=== PATIENT | female | born 1980 | race Caucasian/White ===

== ENCOUNTER 2019-10-11 11:30 | Emergency (ER) | payer SELFPAY ==
[~2019-10-11] VITALS: Ht 170.2 cm; Wt 87.9 kg
[2019-10-11 12:18] VITALS: BP 173/102
[2019-10-11 13:13] LABS: BASOPHILS # (AUTO) 0.02 x10^3/uL (0-0.1); BASOPHILS % (AUTO) 0 % (0-1); EOSINOPHILS # (AUTO) 0.08 x10^3/uL (0-0.4); EOSINOPHILS % (AUTO) 1 % (1-7); LYMPHOCYTES # (AUTO) 3.17 x10^3/uL (1-3.4); LYMPHOCYTES % (AUTO) 30 % (22-44); MD NO; MEAN CORPUSCULAR HEMOGLOBIN 29.9 pg (27.0-34.8); MEAN CORPUSCULAR HGB CONC 33.2 g/dL (32.4-35.8); MEAN CORPUSCULAR VOLUME 90.2 fL (80-100); MEAN PLATELET VOLUME 8.6 fL (7.4-10.4); MONOCYTES # (AUTO) 0.19 x10^3/uL (0.2-0.8); MONOCYTES % (AUTO) 2 % (2-9); NEUTROPHILS # (AUTO) 7.14 x10^3/uL (1.8-6.8); NEUTROPHILS % (AUTO) 67 % (42-75); PLATELET COUNT 306 x10^3/uL (130-400); RED BLOOD COUNT 5.16 x10^6/uL (3.82-5.3); RED CELL DISTRIBUTION WIDTH 13.9 % (9.6-15.2)
== END 2019-10-11 13:49 | disposition left against medical advice (07) ==
LOC: ED 12:30
DX: M25.522 Pain in left elbow (principal); F17.200 Nicotine dependence, unspecified, uncomplicated
CPT/HCPCS: 36415; 85025; 99283

== ENCOUNTER 2019-11-13 09:31 | Inpatient (IN) | payer MEDICARE, MEDICAID ==
[~2019-11-13] VITALS: Ht 170.2 cm; Wt 92.0 kg
--- NOTE | 2019-11-13 09:35 | NUR ---
PT TO ROOM 24 PER SHARLA. PT C/O SEVERE BODY ACHES SINCE YESTERDAY, AND TODAY IT HURT TO SMOKE A CIGARETTE, SO SHE CALLED 911. PT A/O X3, CURRENTLY HOME ON DISABILITY DUE TO MENTAL ILLNESS. PT STATES THAT THE PAIN IS PRIMARILY IN HER JOINTS AROUND BILATERAL KNEES, LOWER BACK AND ELBOWS. PT CHECKED IN, IV PLACED, CXR COMPLETED, PLACED IN GOWN, ON MONITOR, WARM BLANKETS, ICE CHIPS AND CALL LIGHT.
--- NOTE | 2019-11-13 10:30 | NUR ---
RN REQUESTING THAT PATIENT OBTAIN A URINE SAMPLE, AND PATIENT INFORMS RN THAT SHE CAN'T GO YET.
[2019-11-13 11:19] LABS: MEAN CORPUSCULAR HEMOGLOBIN 28.9 pg (27.0-34.8); MEAN CORPUSCULAR HGB CONC 32.4 g/dL (32.4-35.8); MEAN CORPUSCULAR VOLUME 89.3 fL (80-100); MEAN PLATELET VOLUME 10.3 fL (7.4-10.4); PLATELET COUNT 238 x10^3/uL (130-400); RED BLOOD COUNT 4.62 x10^6/uL (3.82-5.3); RED CELL DISTRIBUTION WIDTH 14.2 % (9.6-15.2)
[2019-11-13 11:26] LABS: RAPID INFLUENZA A Negative (Negative); RAPID INFLUENZA B Negative (Negative)
[2019-11-13 11:26] LABS: ALANINE AMINOTRANSFERASE 23 U/L (12-78); ALBUMIN 2.5 g/dL (3.4-5.0); ANION GAP 7 mmol/L (5-15); CALCIUM 8.6 mg/dL (8.5-10.1); CHLORIDE 110 mmol/L (98-107)
[2019-11-13 11:29] LABS: ALKALINE PHOSPHATASE 77 U/L (45-117); BILIRUBIN,TOTAL 0.6 mg/dL (0.2-1.0); TOTAL PROTEIN 6.5 g/dL (6.4-8.2)
--- NOTE | 2019-11-13 11:49 | NUR ---
PT REQUESTING PAIN MEDICATIONS FOR LEG PAIN. DR. CASTRO INFORMED AND ORDER RECEIVED.
[2019-11-13] MEDS ORDERED: KETOROLAC 30 MG/1 ML ONE (11:51)
[2019-11-13] MEDS ORDERED: KETOROLAC 60 MG/2 ML IM ONE (12:00)
[2019-11-13 12:04] LABS: MD YES
[2019-11-13 12:07] LABS: EOS#(MANUAL) 0.18 x10^3/uL (0.0-0.4); EOS% (MANUAL) 1 % (1-7); LYMPH#(MANUAL) 1.65 x10^3/uL (1-3.4); LYMPHS% (MANUAL) 9 % (22-44)
[2019-11-13 12:08] LABS: BAND#(MANUAL) 1.83 x10^3/uL; BANDS%(MANUAL) 10 % (0-7); MONOS#(MANUAL) 0.37 x10^3/uL (0.3-2.7); MONOS% (MANUAL) 2 % (2-9); SEGS% (MANUAL) 78 % (42-75)
[2019-11-13 12:09] LABS: <PLATELET ESTIMATE> ADEQUATE; <PLT MORPHOLOGY> NORMAL PLT MORPH; <RBC MORPHOLOGY> NORMAL
[2019-11-13] MEDS ORDERED: PLEASE ENTER ALLERGIES MC SCH (12:30)
[2019-11-13] MEDS ORDERED: AZITHROMYCIN 500 MG in SODIUM CHLORIDE 0.9% 250 ML IV ONE (12:30)
[2019-11-13 13:16] LABS: CREATINE KINASE, TOTAL 45 U/L (26-192)
[2019-11-13 13:22] LABS: MICROSCOPIC AUTO
[2019-11-13 13:25] LABS: CULTURE INDICATED? YES
[2019-11-13] MEDS: D5%-0.45% NACL 1,000 ML IV SCH (13:44)
[2019-11-13] MEDS ORDERED: TEMAZEPAM 15 MG CAPSULE PO PRN (14:00)
[2019-11-13] MEDS ORDERED: morphine SULFATE 10 MG/ML, 1ML IVPush PRN (14:00)
[2019-11-13] MEDS ORDERED: ACETAMINOPHEN 325 MG TABLET PO PRN (14:00)
[2019-11-13] MEDS: ENOXAPARIN 40 MG/0.4 ML SQ SCH (14:00)
[2019-11-13] MEDS ORDERED: ONDANSETRON 2MG/ML, 2ML IVPush PRN (14:00)
[2019-11-13 14:23] LABS: FREE T4 (FREE THYROXINE) 1.27 ng/dL (0.76-1.46)
--- NOTE | 2019-11-13 14:47 | NUR ---
BREAK RN NOTE: VS REASSESSED. PIV TO RIGHT FOREARM TAKEN OUT PER PRIMARY RN REQUEST IT WAS TENDER AND PAINFUL. TIP INTACT. SPO2 90% ON ROOM AIR, OXYGEN REAPPLIED AT 2L/MIN. PT SATTING >95% ON 2L. PT DROWSY, A&O, RESPS EVEN AND UNLABORED. PT ABLE TO SPEAK IN FULL SENTENCES WIHTOUT DIFFICULTY. REPORT GIVEN BACK TO PRIMARY RN WHO HAS NOW RETURNED FROM BREAK.
--- NOTE | 2019-11-13 14:50 | NUR ---
REPORT GIVEN BACK TO PRIMARY RN MONIQUE WHO HAS NOW RETURNED FROM HER BREAK.
[2019-11-13] MEDS ORDERED: MAGNESIUM SULFATE PMX 2GM/50ML 50 ML IV ONE (15:00)
[2019-11-13] MEDS ORDERED: ZIPR40CA3 PO (15:21)
[2019-11-13] MEDS ORDERED: TRAZ-96 PO (15:21)
[2019-11-13] MEDS ORDERED: SUMA20SP2 PO (15:21)
[2019-11-13] MEDS ORDERED: ATOR-2 PO (15:21)
[2019-11-13] MEDS ORDERED: HYDR25PO5 PO (15:21)
[2019-11-13] MEDS ORDERED: GABA300S PO (15:21)
[2019-11-13] MEDS ORDERED: PROP40SO PO (15:21)
[2019-11-13] MEDS: HYDROXYCHLOROQUINE 200 MG TABLET PO SCH ×2 (15:29→20:06)
[2019-11-13] MEDS ORDERED: morphine SULFATE 10 MG/ML, 1ML ONE (15:31)
--- NOTE | 2019-11-13 15:45 | NUR ---
PT C/O SEVERE PAIN, 5MG IV MORPHINE GIVEN WITHOUT DIFF. FIRST DOSE OF PLAQUINIL ADMINISTERED. MED REC DONE. REPORT TO LIZ POLLOCK. PT TO ROOM PER CART. STATES "MORPHINE HELPING ALREADY"
[2019-11-13] MEDS: OXYcodone IR 5MG TABLET PO PRN (20:06)
[2019-11-13 20:07] VITALS: BP 96/52
[2019-11-13] MEDS: NICOTINE 14MG/24 HR PATCH.TD24 TD SCH (22:42)
[2019-11-14 02:17] VITALS: BP 86/69
[2019-11-14] MEDS ORDERED: SODIUM CHLORIDE 0.9% 1,000ML IVBOLUS ONE (02:30)
[2019-11-14 05:56] LABS: ALBUMIN 1.9 g/dL (3.4-5.0); ANION GAP 7 mmol/L (5-15); CALCIUM 8.4 mg/dL (8.5-10.1); CHLORIDE 112 mmol/L (98-107)
[2019-11-14 06:00] LABS: ALANINE AMINOTRANSFERASE 17 U/L (12-78); ALKALINE PHOSPHATASE 69 U/L (45-117); BILIRUBIN,TOTAL 0.5 mg/dL (0.2-1.0); TOTAL PROTEIN 5.5 g/dL (6.4-8.2)
[2019-11-14 06:16] LABS: BASOPHILS # (AUTO) 0.04 x10^3/uL (0-0.1); BASOPHILS % (AUTO) 1 % (0-1); EOSINOPHILS % (AUTO) 5 % (1-7); LYMPHOCYTES # (AUTO) 2.12 x10^3/uL (1-3.4); LYMPHOCYTES % (AUTO) 24 % (22-44); MD NO; MEAN CORPUSCULAR HEMOGLOBIN 28.8 pg (27.0-34.8); MEAN CORPUSCULAR HGB CONC 32.8 g/dL (32.4-35.8); MEAN PLATELET VOLUME 10.6 fL (7.4-10.4); MONOCYTES # (AUTO) 0.38 x10^3/uL (0.2-0.8); MONOCYTES % (AUTO) 4 % (2-9); NEUTROPHILS # (AUTO) 5.74 x10^3/uL (1.8-6.8); NEUTROPHILS % (AUTO) 66 % (42-75); PLATELET COUNT 195 x10^3/uL (130-400); RED BLOOD COUNT 4.04 x10^6/uL (3.82-5.3)
[2019-11-14 06:17] VITALS: BP 96/67
[2019-11-14] MEDS: D5%-0.45% NACL 1,000 ML IV SCH (08:00)
[2019-11-14] MEDS: POTASSIUM CHLORIDE 20 MEQ TAB.ER.PRT PO SCH ×2 (08:00→16:54)
[2019-11-14] MEDS ORDERED: ZINC SULFATE 220 MG CAPSULE ONE (08:36)
[2019-11-14] MEDS ORDERED: CHOLECALCIFEROL 5,000u TAB ONE (08:36)
[2019-11-14] MEDS ORDERED: ASCORBIC ACID 500 MG TABLET ONE (08:37)
[2019-11-14] MEDS: CEFTRIAXONE PMX 1GM/50ML 50 ML IV SCH (08:38)
[2019-11-14] MEDS: HYDROXYCHLOROQUINE 200 MG TABLET PO SCH ×2 (08:39→22:24)
[2019-11-14] MEDS: SENNA/DOCUSATE TABLET PO SCH (08:40)
[2019-11-14] MEDS: CHOLECALCIFEROL 5,000u TAB PO SCH (08:40)
[2019-11-14] MEDS: AZITHROMYCIN 500 MG TABLET PO SCH (08:40)
[2019-11-14] MEDS: ZINC SULFATE 220 MG CAPSULE PO SCH (08:40)
[2019-11-14 08:59] VITALS: BP 116/79
[2019-11-14] MEDS ORDERED: ASCORBIC ACID 250 MG TAB PO SCH (09:00)
[2019-11-14 12:29] VITALS: BP 114/71
[2019-11-14] MEDS: ENOXAPARIN 40 MG/0.4 ML SQ SCH (13:28)
[2019-11-14] MEDS: OXYcodone IR 5MG TABLET PO PRN ×3 (13:29→22:24)
[2019-11-14] MEDS ORDERED: ENOXAPARIN 40 MG/0.4 ML SQ SCH (15:30)
[2019-11-14] MEDS: ASCORBIC ACID 500 MG TABLET PO SCH (16:54)
[2019-11-14] MEDS ORDERED: ATORVASTATIN 40 MG TABLET PO SCH (21:00)
[2019-11-14] MEDS: NICOTINE 14MG/24 HR PATCH.TD24 TD SCH (22:30)
[2019-11-15] MEDS ORDERED: SUMATRIPTAN 50 MG TABLET PO PRN (03:00)
[2019-11-15 03:59] VITALS: BP 116/77
[2019-11-15 05:12] LABS: BASOPHILS # (AUTO) 0.03 x10^3/uL (0-0.1); BASOPHILS % (AUTO) 0 % (0-1); EOSINOPHILS # (AUTO) 0.38 x10^3/uL (0-0.4); EOSINOPHILS % (AUTO) 5 % (1-7); LYMPHOCYTES # (AUTO) 2.45 x10^3/uL (1-3.4); LYMPHOCYTES % (AUTO) 33 % (22-44); MD NO; MEAN CORPUSCULAR HEMOGLOBIN 28.6 pg (27.0-34.8); MEAN CORPUSCULAR HGB CONC 32.6 g/dL (32.4-35.8); MEAN CORPUSCULAR VOLUME 87.9 fL (80-100); MEAN PLATELET VOLUME 9.9 fL (7.4-10.4); MONOCYTES # (AUTO) 0.51 x10^3/uL (0.2-0.8); MONOCYTES % (AUTO) 7 % (2-9); NEUTROPHILS # (AUTO) 4.15 x10^3/uL (1.8-6.8); NEUTROPHILS % (AUTO) 55 % (42-75); PLATELET COUNT 250 x10^3/uL (130-400); RED BLOOD COUNT 4.16 x10^6/uL (3.82-5.3)
[2019-11-15 05:17] LABS: ANION GAP 5 mmol/L (5-15); CHLORIDE 117 mmol/L (98-107)
[2019-11-15 05:24] LABS: ALANINE AMINOTRANSFERASE 18 U/L (12-78); ALKALINE PHOSPHATASE 67 U/L (45-117); BILIRUBIN,TOTAL 0.3 mg/dL (0.2-1.0); CREATININE 0.65 mg/dL (0.55-1.02); TOTAL PROTEIN 5.7 g/dL (6.4-8.2)
[2019-11-15 08:00] VITALS: BP 111/75
[2019-11-15] MEDS: ASCORBIC ACID 500 MG TABLET PO SCH (08:00)
[2019-11-15] MEDS: POTASSIUM CHLORIDE 20 MEQ TAB.ER.PRT PO SCH (08:00)
[2019-11-15] MEDS: CEFTRIAXONE PMX 1GM/50ML 50 ML IV SCH (08:20)
[2019-11-15] MEDS: ZINC SULFATE 220 MG CAPSULE PO SCH (08:22)
[2019-11-15] MEDS: AZITHROMYCIN 500 MG TABLET PO SCH (08:22)
[2019-11-15] MEDS: HYDROXYCHLOROQUINE 200 MG TABLET PO SCH (08:22)
[2019-11-15] MEDS: SENNA/DOCUSATE TABLET PO SCH (08:22)
[2019-11-15] MEDS: CHOLECALCIFEROL 5,000u TAB PO SCH (08:22)
[2019-11-15] MEDS ORDERED: ZIPRASIDONE 40MG CAPSULE PO SCH (09:00)
[2019-11-15] MEDS ORDERED: PROPRANOLOL 60 MG TABLET PO SCH (09:00)
[2019-11-15] MEDS ORDERED: GABAPENTIN 300 MG CAPSULE PO SCH (09:00)
[2019-11-15] MEDS ORDERED: hydrOXyzine 50MG TABLET PO PRN (09:00)
[2019-11-15 11:30] VITALS: BP 111/75
[2019-11-15] MEDS ORDERED: AMOX500T PO (11:40)
[2019-11-15] MEDS ORDERED: AZIT250T PO (11:40)
[2019-11-15 13:14] VITALS: BP 115/71
[2019-11-15] MEDS ORDERED: TRAZODONE 100MG TABLET PO PRN (21:00)
== END 2019-11-15 14:40 | disposition home or self-care (01) | DRG 178 ==
LOC: ED 09:39 → EDIP 13:05 → 3E 15:59
PROVIDERS: ADMIT Emergency Medicine; ATTEND Family Medicine
DX: J15.6 Pneumonia due to other Gram-negative bacteria (principal); E44.1 Mild protein-calorie malnutrition; D72.823 Leukemoid reaction; B97.29 Other coronavirus as the cause of diseases classified elsewhere; F17.200 Nicotine dependence, unspecified, uncomplicated; F20.9 Schizophrenia, unspecified; I10 Essential (primary) hypertension; M79.7 Fibromyalgia; F32.9 Major depressive disorder, single episode, unspecified; F41.9 Anxiety disorder, unspecified; D72.825 Bandemia; Z72.89 Other problems related to lifestyle; Z20.828 Contact with and (suspected) exposure to other viral communicable diseases
CPT/HCPCS: 36415; 71045; 80053; 81001; 82550; 82728; 83605; 83615; 83735; 84100; 84145; 84439; 84443; 85025; 85379; 86140; 87040; 87086; 87400; 93005; 96365; 96372; 96375; G0378; J0456; J0696; J1650; J1885; J2270; J3475; J7030; J7050; U0001

== ENCOUNTER 2020-04-08 08:05 | Emergency (ER) | payer MEDICARE, MEDICAID ==
[~2020-04-08] VITALS: Ht 170.2 cm; Wt 72.6 kg
[~2020-04-08 08:05] MED LIST: AMOX500T PO; ATOR-2 PO; AZIT250T PO; GABA300S PO; HYDR25PO5 PO; PROP40SO PO; SUMA20SP2 PO; TRAZ-96 PO; ZIPR40CA3 PO
--- NOTE | 2020-04-08 08:19 | NUR ---
BREAK RN: THIS IS A 40 YEAR OLD FEMALE WHO C/O OF MIGRAINES SINCE February. RELIEF W/ SUMATRIPTAN.
[2020-04-08] MEDS ORDERED: KETOROLAC 30 MG/1 ML IVPush ONE (09:00)
[2020-04-08] MEDS ORDERED: SODIUM CHLORIDE 0.9% 1,000ML IVBOLUS ONE (09:00)
[2020-04-08] MEDS ORDERED: METOCLOPRAMIDE 5 MG/ML, 2ML IVPush ONE (09:00)
[2020-04-08] MEDS ORDERED: DIPHENHYDRAMINE 50 MG/ML, 1ML IVPush ONE (09:00)
[2020-04-08] MEDS ORDERED: KETOROLAC 30 MG/1 ML ONE (09:10)
[2020-04-08] MEDS ORDERED: DIPHENHYDRAMINE 50 MG/ML, 1ML ONE (09:10)
[2020-04-08] MEDS ORDERED: METOCLOPRAMIDE 5 MG/ML, 2ML ONE (09:10)
--- NOTE | 2020-04-08 09:20 | NUR ---
AFTER MULTIPLE UNSUCCESFUL ATTEMPTS AT ESTABLISHING IV ACCESS, LAURA POLLOCK STARTED 20 G EJ LEFT SIDE WITH GOOD BLOOD RETURN AND FLUIDS FLOWING WELL. MEDICATED NOTED ON SEP FOR KHALIL
--- NOTE | 2020-04-08 09:30 | NUR ---
TO CT VIA [facility]
[2020-04-08 10:10] VITALS: BP 127/75
--- NOTE | 2020-04-08 10:10 | NUR ---
NO KHALIL AFTER MEDICATED. TO BE DISCHARGED
--- NOTE | 2020-04-08 10:29 | NUR ---
IV REMOVED FROM LEFT EJ WITH CATH TIP INTACT. PT GIVEN DISCHARGE PAPERS AND GETTING DRESSED.
== END 2020-04-08 10:33 | disposition home or self-care (01) ==
LOC: ED 10:21
DX: G44.219 Episodic tension-type headache, not intractable (principal)
CPT/HCPCS: 70450; 96361; 96374; 96375; 99284; J1200; J1885; J2765; J7030